=== PATIENT | female | born 1970 | race Caucasian/White ===

== ENCOUNTER 2025-01-15 20:10 | Emergency (ER) | payer OTHER ==
[~2025-01-15] VITALS: Ht 152.4 cm; Wt 58.2 kg
[~2025-01-15 20:10] MED LIST: FOLI-130 PO; METH2.5T7 PO; WARF1TAB9 PO
[2025-01-15 20:25] VITALS: BP 128/77; PULSE 89; RESP 16; TEMP 97.6; O2SAT 97
[2025-01-15 21:24] LABS: PLATELET COUNT (AUTO) 547 K/uL (150-450); RED BLOOD CELL COUNT(AUTO) 4.23 MIL/uL (4.00-5.20); RED CELL DISTRIBUTION WIDTH 13.6 % (11.5-14.5); WHITE BLOOD COUNT (AUTO) 9.3 K/uL (4.5-11.0)
[2025-01-15 21:35] LABS: CALCIUM, TOTAL 9.2 mg/dL (8.8-10.5); CREATININE 1.13 mg/dL (0.60-1.30); GLOMERULAR FILTR. RATE CALC 50 mL/min (>60); GLUCOSE,RANDOM 108 mg/dL (70-110); SODIUM SERUM 139 mmol/L (136-145); UREA NITROGEN, BLOOD 15 mg/dL (7-18)
[2025-01-15 21:42] LABS: ASPARTATE AMINOTRANSFERASE 17.0 U/L (15-37); CREATINE KINASE, TOTAL ONLY 88.0 U/L (26-192); TOTAL PROTEIN, SERUM 8.1 g/dL (6.4-8.2)
[2025-01-15 22:00] LABS: TROPONIN I-HIGH SENSITIVITY 4 ng/L (<51)
[2025-01-15 22:19] LABS: APPEARANCE,URINE CLEAR (CLEAR); GLUCOSE, URINE (UA) NEGATIVE (NEGATIVE); LEUKOCYTE ESTERASE ,URINE NEGATIVE (NEGATIVE); NITRATE,URINE NEGATIVE (NEGATIVE); OCCULT BLOOD,URINE NEGATIVE (NEGATIVE); SPECIFIC GRAVITIY, URINE 1.008 (1.003-1.030)
== END 2025-01-16 01:00 | disposition left against medical advice (07) ==
LOC: EMS 20:10
DX: R07.89 Other chest pain (principal); Z53.21 Procedure and treatment not carried out due to patient leaving prior to being seen by health care provider
CPT/HCPCS: 71045; 80048; 80076; 81003; 82550; 83880; 84484; 84703; 85025; 93005; 36415-L1; 36415-TC